=== PATIENT | male | born 1960 | race Caucasian/White ===

== ENCOUNTER 2019-03-03 15:52 | Inpatient (IN) | payer MEDICAID, OTHER ==
[~2019-03-03] VITALS: Ht 175.3 cm; Wt 70.8 kg
[2019-03-03] MEDS ORDERED: QUET300T2 PO (16:39)
[2019-03-03 17:21] LABS: BASOPHILS % (AUTO) 0.9 % (0.0-2.0); EOSINOPHILS % (AUTO) 1.3 % (1.0-6.0); HEMATOCRIT 41.2 % (41-53); HEMOGLOBIN 14.3 g/dL (13.5-17.5); LYMPHOCYTES # (AUTO) 2.1 K/uL (1.0-4.8); LYMPHOCYTES % (AUTO) 19.5 % (22.0-44.0); MEAN CORPUSCULAR HEMOGLOBIN 31.5 pg (26.0-34.0); MEAN CORPUSCULAR HGB CONC 34.6 G/dL (31.0-37.0); MEAN CORPUSCULAR VOLUME 91 fL (80-100); MONOCYTES # (AUTO) 0.6 K/uL (0.1-1.0); MONOCYTES % (AUTO) 5.6 % (2.0-9.0); NEUTROPHILS # (AUTO) 7.9 K/uL (1.8-7.7); NEUTROPHILS % (AUTO) 72.7 % (40.0-70.0); PLATELET COUNT (AUTO) 364 K/uL (150-450); RED BLOOD CELL COUNT(AUTO) 4.52 MIL/uL (4.50-5.90); RED CELL DISTRIBUTION WIDTH 13.5 % (11.5-14.5)
[2019-03-03 17:36] LABS: ANION GAP 10 mmol/L (8-16); CALCIUM, TOTAL 9.2 mg/dL (8.8-10.5); CARBON DIOXIDE 26 mmol/L (22-29); CHLORIDE 103 mmol/L (98-107); CREATININE 1.06 mg/dL (0.60-1.30); GLOMERULAR FILTR. RATE CALC > 60 mL/min (>60); GLUCOSE,RANDOM 153 mg/dL (70-110); POTASSIUM 3.9 mmol/L (3.5-5.1); SODIUM SERUM 139 mmol/L (136-145); UREA NITROGEN, BLOOD 15 mg/dL (7-18)
[2019-03-03 17:42] LABS: ALANINE AMINOTRANSFERASE 25 U/L (12-78); ALBUMIN 3.6 g/dL (3.4-5.0); ALKALINE PHOSPHATASE 85 U/L (46-116); ASPARTATE AMINOTRANSFERASE 28 U/L (15-37); BILIRUBIN,TOTAL 0.4 mg/dL (0.1-1.0); TOTAL PROTEIN, SERUM 6.8 g/dL (6.4-8.2)
[2019-03-04 05:40] LABS: CHOL/HDL RATIO 4.8 (4.2-7.3)
[2019-03-04] MEDS: HALOPERIDOL 5 MG TABLET PO PRN (09:03)
[2019-03-04] MEDS: LORazepam 2 MG TABLET PO PRN (09:03)
[2019-03-04 16:04] LABS: AMPHET/METH SCREEN,URINE POSITIVE (NEGATIVE); BARBITURATE SCREEN, URINE NEGATIVE (NEGATIVE); BENZODIAZEPINES SCREEN,URINE NEGATIVE (NEGATIVE); CANNABINOID SCREEN,URINE POSITIVE (NEGATIVE); COCAINE SCREEN,URINE NEGATIVE (NEGATIVE); METHADONE SCREEN, URINE NEGATIVE (NEGATIVE); OPIATE SCREEN,URINE NEGATIVE (NEGATIVE); PHENCYCLIDINE SCREEN,URINE NEGATIVE (NEGATIVE)
[2019-03-04 19:24] VITALS: BP 138/74
[2019-03-04] MEDS ORDERED: MAG HYDROX/AL HYDROX/SIMETH ES 30 ML SUSPENSION UDCUP PO PRN (20:00)
[2019-03-04] MEDS ORDERED: PETROLATUM,WHITE 28 GM JELLY TP PRN (20:00)
[2019-03-04] MEDS ORDERED: MAGNESIUM HYDROXIDE SUSPENSION 30 ML UDCUP PO PRN (20:00)
[2019-03-04] MEDS ORDERED: IBUPROFEN 600 MG TABLET PO PRN (20:00)
[2019-03-04] MEDS ORDERED: LOPERAMIDE HCL 2 MG CAPSULE PO PRN (20:00)
[2019-03-04] MEDS ORDERED: ALBUTEROL SULFATE HFA 90 MCG/PUFF 8 GM INHALER IH PRN (20:00)
[2019-03-04] MEDS ORDERED: CloNIDine HCL 0.1 MG TABLET PO PRN (20:00)
[2019-03-04] MEDS ORDERED: BENZOCAINE/MENTHOL LOZENGE MM PRN (20:00)
[2019-03-04] MEDS ORDERED: ONDANSETRON HCL 4 MG TABLET PO PRN (20:00)
[2019-03-04] MEDS ORDERED: ACETAMINOPHEN 325 MG TABLET PO PRN (20:00)
[2019-03-04] MEDS ORDERED: BACITRACIN 28.4 GM OINTMENT TP PRN (20:00)
[2019-03-04] MEDS: ZOLPIDEM TARTRATE 10 MG TABLET PO PRN (20:04)
[2019-03-04] MEDS ORDERED: QUEtiapine FUMARATE 300 MG TABLET PO SCH (21:00)
[2019-03-05 07:13] VITALS: BP 127/82
[2019-03-05 07:14] VITALS: BP 132/83
[2019-03-05] MEDS: FLUoxetine HCL 20 MG CAPSULE PO SCH (08:09)
[2019-03-05] MEDS: DOCUSATE SODIUM 100 MG CAPSULE PO SCH (08:09)
[2019-03-05] MEDS: OMEPRAZOLE 20 MG CAPSULE PO SCH (08:10)
[2019-03-05 08:33] VITALS: BP 109/69
[2019-03-05 16:00] VITALS: BP 120/77
[2019-03-05] MEDS: HALOPERIDOL 5 MG TABLET PO PRN (16:42)
[2019-03-05] MEDS: LORazepam 2 MG TABLET PO PRN (16:42)
[2019-03-05] MEDS: QUEtiapine FUMARATE 300 MG ER TABLET PO SCH (20:35)
[2019-03-05] MEDS: ZOLPIDEM TARTRATE 10 MG TABLET PO PRN (20:35)
[2019-03-06 01:59] VITALS: BP 114/64
[2019-03-06] MEDS: DOCUSATE SODIUM 100 MG CAPSULE PO SCH (08:18)
[2019-03-06] MEDS: OMEPRAZOLE 20 MG CAPSULE PO SCH (08:18)
[2019-03-06] MEDS: FLUoxetine HCL 20 MG CAPSULE PO SCH (08:18)
[2019-03-06 08:43] VITALS: BP 116/70
[2019-03-06 16:00] VITALS: BP 121/84
[2019-03-06] MEDS: HALOPERIDOL 5 MG TABLET PO PRN (16:06)
[2019-03-06] MEDS: LORazepam 2 MG TABLET PO PRN (16:06)
[2019-03-06] MEDS: QUEtiapine FUMARATE 300 MG ER TABLET PO SCH (20:25)
[2019-03-07 01:01] VITALS: BP 122/69
[2019-03-07] MEDS: LORazepam 2 MG TABLET PO PRN ×2 (08:01→16:23)
[2019-03-07] MEDS: FLUoxetine HCL 20 MG CAPSULE PO SCH (08:01)
[2019-03-07] MEDS: OMEPRAZOLE 20 MG CAPSULE PO SCH (08:01)
[2019-03-07] MEDS: DOCUSATE SODIUM 100 MG CAPSULE PO SCH (08:01)
[2019-03-07 08:16] VITALS: BP 107/70
[2019-03-07 16:03] VITALS: BP 135/86
[2019-03-07] MEDS: ZOLPIDEM TARTRATE 10 MG TABLET PO PRN (20:57)
[2019-03-07] MEDS: QUEtiapine FUMARATE 300 MG ER TABLET PO SCH (20:57)
[2019-03-08] MEDS: FLUoxetine HCL 20 MG CAPSULE PO SCH (08:21)
[2019-03-08] MEDS: DOCUSATE SODIUM 100 MG CAPSULE PO SCH (08:21)
[2019-03-08] MEDS: OMEPRAZOLE 20 MG CAPSULE PO SCH (08:21)
[2019-03-08 16:07] VITALS: BP 125/70
[2019-03-08] MEDS: HALOPERIDOL 5 MG TABLET PO PRN (16:14)
[2019-03-08] MEDS: LORazepam 2 MG TABLET PO PRN ×2 (16:14→20:15)
[2019-03-08] MEDS: ZOLPIDEM TARTRATE 10 MG TABLET PO PRN (20:07)
[2019-03-08] MEDS ORDERED: QUEtiapine FUMARATE 300 MG ER TABLET PO SCH (21:00)
[2019-03-09 04:57] VITALS: BP 119/74
[2019-03-09 08:03] VITALS: BP 111/58
[2019-03-09] MEDS: FLUoxetine HCL 20 MG CAPSULE PO SCH (08:37)
[2019-03-09] MEDS: DOCUSATE SODIUM 100 MG CAPSULE PO SCH (08:37)
[2019-03-09] MEDS: OMEPRAZOLE 20 MG CAPSULE PO SCH (08:37)
[2019-03-09] MEDS ORDERED: QUET300T5 PO (12:54)
[2019-03-09] MEDS ORDERED: FLUO-191 PO (12:54)
== END 2019-03-09 14:00 | disposition home or self-care (01) | DRG 750 ==
LOC: EMS 15:52 → B3A 03-04 16:15
PROVIDERS: ADMIT Psychiatry & Neurology Psychiatry; ATTEND Psychiatry & Neurology Psychiatry
DX: F20.0 Paranoid schizophrenia (principal); R45.851 Suicidal ideations; G47.00 Insomnia, unspecified; K59.00 Constipation, unspecified; F32.9 Major depressive disorder, single episode, unspecified; Z87.891 Personal history of nicotine dependence; Z91.5 Personal history of self-harm
CPT/HCPCS: 83036; G0480